=== PATIENT | female | born 1965 | race Caucasian/White ===

== ENCOUNTER → 2016-09-27 | Emergency (ER) | payer OTHER ==
--- NOTE | 2016-09-27 20:34 | ED ORDER SUMMARY ---
..... Patient: MELISSA JOY OrderSheet [facility] VisitID: [id number] [address] [place] [address] 51y, F Registration Date/Time: 09/27/2016 ORDER SHEET Weight: 127.0 kg (stated) Allergies: Aspirin, OxyCODONE HCl GENERAL ORDERS: UA-Culture if indicated Urgent (19:09/27/2016 [facility]) (Ack 19:37 LTapper) Urine Urgent (:09/27/2016 [facility]) (Ack 19:37 LTapper) Urine Drug Screen Urgent (:09/27/2016 [facility]) (Ac 19:37 LTapper) MEDICATION ORDERS: Hydrocodone-APAP PO 5/325 mg (NOW, HIGH ALERT MEDICATION) (20:27 09/27/2016 [facility]) (20:43 EInderbitzen R.N.) Zofran ODT PO 4 mg (NOW) (20:28 09/27/2016 [facility]) (20:43 EInderbitzen R.N.) Flexeril PO 10 mg (NOW) (20:28 09/27/2016 [facility]) (20:43 EInderbitzen R.N.) IV FLUIDS: ORDER SHEET NOTES: [Electronically signed by Vanesa Pisano R.N. (20:44 09/27/2016)] [Electronically signed by Trip Dewitt DO (10:04 09/28/2016)] [Electronically locked/signed by Vanesa Pisano R.N. (20:44 09/27/2016)]
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
--- NOTE | 2016-09-27 20:34 | ED ORDER SUMMARY ---
..... Patient: MELISSA JOY OrderSheet [facility] VisitID: [id number] [address] [place] [address] 51y, F Registration Date/Time: 09/27/2016 ORDER SHEET Weight: 127.0 kg (stated) Allergies: Aspirin, OxyCODONE HCl GENERAL ORDERS: UA-Culture if indicated Urgent (19:09/27/2016 [facility]) (Ack 19:37 LTapper) Urine Urgent (:09/27/2016 [facility]) (Ack 19:37 LTapper) Urine Drug Screen Urgent (:09/27/2016 [facility]) (Ac 19:37 LTapper) MEDICATION ORDERS: Hydrocodone-APAP PO 5/325 mg (NOW, HIGH ALERT MEDICATION) (20:27 09/27/2016 [facility]) (20:43 EInderbitzen R.N.) Zofran ODT PO 4 mg (NOW) (20:28 09/27/2016 [facility]) (20:43 EInderbitzen R.N.) Flexeril PO 10 mg (NOW) (20:28 09/27/2016 [facility]) (20:43 EInderbitzen R.N.) IV FLUIDS: ORDER SHEET NOTES: [Electronically signed by Vanesa Pisano R.N. (20:44 09/27/2016)] [Electronically signed by Trip Dewitt DO (10:04 09/28/2016)] [Electronically locked/signed by Vanesa Pisano R.N. (20:44 09/27/2016)]
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
--- NOTE | 2016-09-28 10:04 | ED MAR SUMMARY ---
..... Medication Administration Record [facility] [address] [place] [address] Patient: MELISSA JOY Visit ID: [id number] 51y, F Weight: 127.0 kg Height/Length: 63 in BMI: 49.6 ALLERGIES: Aspirin, OxyCODONE HCl Given 20:09/27/2016 Vanesa Pisano R.N. Medication Administered: HYDROCODONE-APAP [PO] (HYDROCODONE-ACETAMINOPHEN), Dose: 1 tab 5/325 mg Tablets PO. Medication Ordered: Hydrocodone-APAP PO 5/325 mg (NOW, HIGH ALERT MEDICATION). Given 20:09/27/2016 Vanesa Pisano R.N. Medication Administered: ZOFRAN ODT [PO] (ONDANSETRON), Dose: 4 mg Oral Disintegrating Tablets PO. Medication Ordered: Zofran ODT PO 4 mg (NOW). Given 20:09/27/2016 Vanesa Pisano R.N. Medication Administered: FLEXERIL [PO] (CYCLOBENZAPRINE HCL), Dose: 10 mg Tablets PO. Medication Ordered: Flexeril PO 10 mg (NOW).
--- NOTE | 2016-09-28 10:04 | ED DISCHARGE INSTRUCTIONS ---
Patient: MELISSA JOY General Instructions [facility] VisitID: [id number] [address], [place] [address] 51y, F Registration Date/Time: 09/27/2016 Acute lumbar strain. Essential hypertension. Morbid obesity (BMI >=40) due to excess calories. INSTRUCTIONS Apply ice. Do not work for three days. Warnings: SEDATIVE MEDICATION: You were given sedative medication during your visit. Do not drive or operate dangerous machinery. CONTROLLED SUBSTANCE WARNINGS. GENERAL WARNINGS: Return or contact your physician immediately if your condition worsens or changes unexpectedly, if not improving as expected, or if other problems arise. Your Current Medications: CONTINUE TAKING THE FOLLOWING MEDICATIONS: Albuterol Sulfate HFA Inhalation. Flovent Diskus Inhalation. Meclizine HCl Oral : prn. PROzac Oral. Vistaril Oral : prn, anxiety. Prescription Medications: Hydrocodone/APAP 5mg / 325mg: take 1-2 orally every 8 hours as needed for pain. Dispense ten (10). No refill. Flexeril 10 mg: Take 1 orally every 8 hours as needed for muscle spasm. Dispense twenty (20). No refills. Substitution is permissible. OTC Medications: Acetaminophen (available over the counter): take according to label instructions. Motrin (available over the counter): take according to label instructions. Follow-up: Follow up with your doctor Dennise in about three days. Screening today revealed the patient's blood pressure to be in the hypertensive range. The patient should follow up with a primary care provider for blood pressure management. Follow-up with: [facility], , , [address], , [place], [id number] Follow up tomorrow. ADDITIONAL INFORMATION Back Pain [Acute Or Chronic] Back pain is usually caused by an injury to the muscles or ligaments of the spine. Sometimes the disks that separate each bone in the spine may bulge and cause pain by pressing on a nearby nerve. Back pain may also appear after a sudden twisting/bending force (such as in a car accident), after a simple awkward movement, or lifting something heavy with poor body positioning. In either case, muscle spasm is often present and adds to the pain. Acute back pain usually gets better in one to two weeks. Back pain related to disk disease, arthritis in the spinal joints or spinal stenosis (narrowing of the spinal canal) can become chronic and last for months or years. Unless you had a physical injury (for example, a car accident or fall) X-rays are usually not ordered for the initial evaluation of back pain. If pain continues and does not respond to medical treatment, x-rays and other tests may be performed at a later time. Home Care: You may need to stay in bed the first few days. But, as soon as possible, begin sitting or walking to avoid problems with prolonged bed rest (muscle weakness, worsening back stiffness and pain, blood clots in the legs). When in bed, try to find a position of comfort. A firm mattress is best. Try lying flat on your back with pillows under your knees. You can also try lying on your side with your knees bent up towards your chest and a pillow between your knees. Avoid prolonged sitting. This puts more stress on the lower back than standing or walking. During the first two days after injury, apply an ICE PACK to the painful area for 20 minutes every 2-4 hours. This will reduce swelling and pain. HEAT (hot shower, hot bath or heating pad) works well for muscle spasm. You can start with ice, then switch to heat after two days. Some patients feel best alternating ice and heat treatments. Use the one method that feels the best to you. You may use acetaminophen (Tylenol) or ibuprofen (Motrin, Advil) to control pain, unless another pain medicine was prescribed. [NOTE: If you have chronic liver or kidney disease or ever had a stomach ulcer or GI bleeding, talk with your doctor before using these medicines.] Be aware of safe lifting methods and do not lift anything over 15 pounds until all the pain is gone. Follow Up with your doctor or this facility if your symptoms do not start to improve after one week. Physical therapy may be needed. [NOTE: If X-rays were taken, they will be reviewed by a radiologist. You will be notified of any new findings that may affect your care.] Get Prompt Medical Attention if any of the following occur: Pain becomes worse or spreads to your legs Weakness or numbness in one or both legs Loss of bowel or bladder control Numbness in the groin or genital area High Blood Pressure -- To Be Confirmed [No Tx] Your blood pressure was higher today than normal. Sometimes anxiety or pain can cause a temporary rise in blood pressure that later returns to normal. If your blood pressure is high on one measurement, this does not mean that you have hypertension (a chronic illness). However, you must have your blood pressure measured again within the next few days to find out if its still high. A normal blood pressure is 120/80 or less. The first (top) number is the "systolic" pressure. The second (bottom) number is the "diastolic" pressure. Hypertension exists when either the top number is 140 or higher, OR the bottom number is 90 or higher on repeated measurements. Blood pressure in the range of 120-140 (systolic) or 80-89 (diastolic) is considered "pre-hypertension". This means your are at risk for getting hypertension. You should have regular blood pressure checks to be sure your blood pressure is not rising. Home Care: Measure your blood pressure on 3 different days and write down the results. This can be done at your doctor's office or this facility. Some pharmacies and grocery stores offer automated blood pressure machines for your use. Follow Up: If your blood pressure is "high" (over 120/80) on 2 out of 3 days, you will need to follow up with your doctor for further evaluation and treatment. DO NOT PUT THIS OFF! Untreated high blood pressure increases the risk for heart attack, also known as acute myocardial infarction, or AMI, and stroke. It is a treatable condition. Get Prompt Medical Attention if any of the following occur: Chest pain or shortness of breath Severe headache Throbbing or rushing sound in the ears Nosebleed Sudden severe abdominal pain Extreme drowsiness, confusion or fainting Dizziness or vertigo (dizziness with spinning sensation) Weakness of an arm or leg or one side of the face Difficulty with speech or vision Rib Fracture You have a fracture (break) of one or more ribs. Rib fractures do not require a cast like other bones. They will heal by themselves in about 4-6 weeks. The first 3-4 weeks will be the most painful because deep breathing, coughing or changing position from sitting to lying down, may cause the broken ends to move slightly. Home Care: Rest. You should not be doing any heavy lifting or strenuous exertion until the pain goes away. Because it hurts to breathe when you have a broken rib, there is risk of getting pneumonia from poor airflow through your lungs. To prevent this: Take four very deep breaths at least four times a day (exhale through pursed lips as if you are blowing up a balloon). If an "incentive spirometer" (breathing exercise device) was given to you, use it at least four times a day, or as directed. Apply an ice pack (ice cubes in a plastic bag, wrapped in a towel) over the injured area for 20 minutes every 1-2 hours the first day. Continue with ice packs 3-4 times a day for the next two days, then as needed for the relief of pain and swelling. You may use acetaminophen (Tylenol) or ibuprofen (Motrin, Advil) to control pain, unless another pain medicine was prescribed. [NOTE: If you have chronic liver or kidney disease or ever had a stomach ulcer or GI bleeding, talk with your doctor before using these medicines.] If your pain is not controlled by the treatment given, contact your doctor. Sometimes a stronger pain medicine may be needed. A nerve block (numbing the nerve between the ribs) can be performed in case of severe pain. Follow Up with your doctor during the next week, or as advised. Rarely, a broken rib will cause complications within the first few days that may not be evident during your initial exam (such as, collapsed lung, bleeding around the lung or into the abdomen, or pneumonia). Therefore, watch for the signs below. [NOTE: If x-rays were taken, they will be reviewed by a radiologist. You will be notified of any new findings that may affect your care.] Get Prompt Medical Attention if any of the following occur: Shortness of breath Increasing chest pain with breathing Dizziness, weakness or fainting New or worsening abdominal pain Fever of 100.4F (38C) or higher, or as directed by your healthcare provider Congested cough Hydrocodone Bitartrate, Acetaminophen Oral tablet What is this medicine? ACETAMINOPHEN; HYDROCODONE (a set a NUNO juan fen; lluvia droe KOE done) is a pain reliever. It is used to treat mild to moderate pain. How should I use this medicine? Take this medicine by mouth. Swallow it with a full glass of water. Follow the directions on the prescription label. If the medicine upsets your stomach, take the medicine with food or milk. Do not take more than you are told to take. Talk to your fisher lampara net regarding the use of this medicine in children. This medicine is not approved for use in children. What side effects may I notice from receiving this medicine? Side effects that you should report to your doctor or health human services care specialist as soon as possible: allergic reactions like skin rash, itching or hives, swelling of the face, lips, or tongue breathing problems confusion feeling faint or lightheaded, falls stomach pain yellowing of the eyes or skin Side effects that usually do not require medical attention (report to your doctor or health human services care specialist if they continue or are bothersome): nausea, vomiting stomach upset What may interact with this medicine? alcohol antihistamines isoniazid medicines for depression, anxiety, or psychotic disturbances medicines for sleep muscle relaxants naltrexone narcotic medicines (opiates) for pain phenobarbital ritonavir tramadol What if I miss a dose? If you miss a dose, take it as soon as you can. If it is almost time for your next dose, take only that dose. Do not take double or extra doses. Where should I keep my medicine? Keep out of the reach of children. This medicine can be abused. Keep your medicine in a safe place to protect it from theft. Do not share this medicine with anyone. Selling or giving away this medicine is dangerous and against the law. Store at room temperature between 15 and 30 degrees C (59 and 86 degrees F). Protect from light. Keep container tightly closed. Throw away any unused medicine after the expiration date. Discard unused medicine and used packaging carefully. Pets and children can be harmed if they find used or lost packages. What should I tell my health care provider before I take this medicine? They need to know if you have any of these conditions: brain tumor Crohn's disease, inflammatory bowel disease, or ulcerative colitis drink more than 3 alcohol-containing drinks per day drug abuse or addiction head injury heart or circulation problems kidney disease or problems going to the bathroom liver disease lung disease, asthma, or breathing problems an unusual or allergic reaction to acetaminophen, hydrocodone, other opioid analgesics, other medicines, foods, dyes, or preservatives or trying to get breast-feeding What should I watch for while using this medicine? Tell your doctor or health human services care specialist if your pain does not go away, if it gets worse, or if you have new or a different type of pain. You may develop tolerance to the medicine. Tolerance means that you will need a higher dose of the medicine for pain relief. Tolerance is normal and is expected if you take the medicine for a long time. Do not suddenly stop taking your medicine because you may develop a severe reaction. Your body becomes used to the medicine. This does NOT mean you are addicted. Addiction is a behavior related to getting and using a drug for a non-medical reason. If you have pain, you have a medical reason to take pain medicine. Your doctor will tell you how much medicine to take. If your doctor wants you to stop the medicine, the dose will be slowly lowered over time to avoid any side effects. You may get drowsy or dizzy when you first start taking the medicine or change doses. Do not drive, use machinery, or do anything that may be dangerous until you know how the medicine affects you. Stand or sit up slowly. There are different types of narcotic medicines (opiates) for pain. If you take more than one type at the same time, you may have more side effects. Give your health care provider a list of all medicines you use. Your doctor will tell you how much medicine to take. Do not take more medicine than directed. Call emergency for help if you have problems breathing. The medicine will cause constipation. Try to have a bowel movement at least every 2 to 3 days. If you do not have a bowel movement for 3 days, call your doctor or health human services care specialist. Too much acetaminophen can be very dangerous. Do not take Tylenol (acetaminophen) or medicines that contain acetaminophen with this medicine. Many non-prescription medicines contain acetaminophen. Always read the labels carefully. Cyclobenzaprine Hydrochloride Oral tablet What is this medicine? CYCLOBENZAPRINE ([facility]) is a muscle relaxer. It is used to treat muscle pain, spasms, and stiffness. How should I use this medicine? Take this medicine by mouth with a glass of water. Follow the directions on the prescription label. If this medicine upsets your stomach, take it with food or milk. Take your medicine at regular intervals. Do not take it more often than directed. Talk to your fisher lampara net regarding the use of this medicine in children. Special care may be needed. What side effects may I notice from receiving this medicine? Side effects that you should report to your doctor or health human services care specialist as soon as possible: allergic reactions like skin rash, itching or hives, swelling of the face, lips, or tongue chest pain fast heartbeat hallucinations seizures vomiting Side effects that usually do not require medical attention (report to your doctor or health human services care specialist if they continue or are bothersome): headache What may interact with this medicine? Do not take this medicine with any of the following medications: cisapride droperidol flecainide grepafloxacin halofantrine levomethadyl MAOIs like Carbex, Eldepryl, Marplan, Nardil, and Parnate nilotinib pimozide probucol sertindole This medicine may also interact with the following medications: abarelix alcohol contrast dyes dolasetron guanethidine medicines for cancer medicines for depression, anxiety, or psychotic disturbances medicines to treat an irregular heartbeat medicines used for sleep or numbness during surgery or procedure methadone octreotide ondansetron palonosetron phenothiazines like chlorpromazine, mesoridazine, prochlorperazine, thioridazine some medicines for infection like alfuzosin, chloroquine, clarithromycin, levofloxacin, mefloquine, pentamidine, troleandomycin tramadol vardenafil What if I miss a dose? If you miss a dose, take it as soon as you can. If it is almost time for your next dose, take only that dose. Do not take double or extra doses. Where should I keep my medicine? Keep out of the reach of children. Store at room temperature between 15 and 30 degrees C (59 and 86 degrees F). Keep container tightly closed. Throw away any unused medicine after the expiration date. What should I tell my health care provider before I take this medicine? They need to know if you have any of these conditions: heart disease, irregular heartbeat, or previous heart attack liver disease thyroid problem an unusual or allergic reaction to cyclobenzaprine, tricyclic antidepressants, lactose, other medicines, foods, dyes, or preservatives or trying to get breast-feeding What should I watch for while using this medicine? Check with your doctor or health human services care specialist if your condition does not improve within 1 to 3 weeks. You may get drowsy or dizzy when you first start taking the medicine or change doses. Do not drive, use machinery, or do anything that may be dangerous until you know how the medicine affects you. Stand or sit up slowly. Your mouth may get dry. Drinking water, chewing sugarless gum, or sucking on hard candy may help. Acetaminophen Oral tablet What is this medicine? ACETAMINOPHEN (a set a NUNO juan fen) is a pain reliever. It is used to treat mild pain and fever. How should I use this medicine? Take this medicine by mouth with a glass of water. Follow the directions on the package or prescription label. Take your medicine at regular intervals. Do not take your medicine more often than directed. Talk to your fisher lampara net regarding the use of this medicine in children. While this drug may be prescribed for children as young as 6 years of age for selected conditions, precautions do apply. What side effects may I notice from receiving this medicine? Side effects that you should report to your doctor or health human services care specialist as soon as possible: allergic reactions like skin rash, itching or hives, swelling of the face, lips, or tongue breathing problems fever or sore throat redness, blistering, peeling or loosening of the skin, including inside the mouth trouble passing urine or change in the amount of urine unusual bleeding or bruising unusually weak or tired yellowing of the eyes or skin Side effects that usually do not require medical attention (report to your doctor or health human services care specialist if they continue or are bothersome): headache nausea, stomach upset What may interact with this medicine? alcohol imatinib isoniazid other medicines with acetaminophen What if I miss a dose? If you miss a dose, take it as soon as you can. If it is almost time for your next dose, take only that dose. Do not take double or extra doses. Where should I keep my medicine? Keep out of reach of children. Store at room temperature between 20 and 25 degrees C (68 and 77 degrees F). Protect from moisture and heat. Throw away any unused medicine after the expiration date. What should I tell my health care provider before I take this medicine? They need to know if you have any of these conditions: if you frequently drink alcohol containing drinks liver disease an unusual or allergic reaction to acetaminophen, other medicines, foods, dyes or preservatives or trying to get breast-feeding What should I watch for while using this medicine? Tell your doctor or health human services care specialist if the pain lasts more than 10 days (5 days for children), if it gets worse, or if there is a new or different kind of pain. Also, check with your doctor if a fever lasts for more than 3 days. Do not take other medicines that contain acetaminophen with this medicine. Always read labels carefully. If you have questions, ask your doctor or pharmacist. If you take too much acetaminophen get medical help right away. Too much acetaminophen can be very dangerous and cause liver damage. Even if you do not have symptoms, it is important to get help right away. Ibuprofen Oral tablet What is this medicine? IBUPROFEN (eye BYOO proe fen) is a non-steroidal anti-inflammatory drug (NSAID). It is used for dental pain, fever, headaches or migraines, osteoarthritis, rheumatoid arthritis, or painful monthly periods. It can also relieve minor aches and pains caused by a cold, flu, or sore throat. How should I use this medicine? Take this medicine by mouth with a glass of water. Follow the directions on the prescription label. Take this medicine with food if your stomach gets upset. Try to not lie down for at least 10 minutes after you take the medicine. Take your medicine at regular intervals. Do not take your medicine more often than directed. A special MedGuide will be given to you by the pharmacist with each prescription and refill. Be sure to read this information carefully each time. Talk to your fisher lampara net regarding the use of this medicine in children. Special care may be needed. What side effects may I notice from receiving this medicine? Side effects that you should report to your doctor or health human services care specialist as soon as possible: allergic reactions like skin rash, itching or hives, swelling of the face, lips, or tongue black or bloody stools, blood in the urine or in vomit breathing problems changes in vision chest pain general ill feeling or flu-like symptoms nausea or vomiting redness, blistering, peeling or loosening of the skin, including inside the mouth slurred speech or weakness on one side of the body stomach pain unexplained weight gain or swelling unusually weak or tired yellowing of eyes or skin Side effects that usually do not require medical attention (report to your doctor or health human services care specialist if they continue or are bothersome): constipation or diarrhea dizziness gas or heartburn stomach upset What may interact with this medicine? Do not take this medicine with any of the following medications: cidofovir ketorolac methotrexate pemetrexed This medicine may also interact with the following medications: alcohol aspirin diuretics lithium other drugs for inflammation like prednisone warfarin What if I miss a dose? If you miss a dose, take it as soon as you can. If it is almost time for your next dose, take only that dose. Do not take double or extra doses. Where should I keep my medicine? Keep out of the reach of children. Store at room temperature between 15 and 30 degrees C (59 and 86 degrees F). Keep container tightly closed. Throw away any unused medicine after the expiration date. What should I tell my health care provider before I take this medicine? They need to know if you have any of these conditions: asthma cigarette smoker drink more than 3 alcohol containing drinks a day heart disease or circulation problems such as heart failure or leg edema (fluid retention) high blood pressure kidney disease liver disease stomach bleeding or ulcers an unusual or allergic reaction to ibuprofen, aspirin, other NSAIDS, other medicines, foods, dyes, or preservatives or trying to get breast-feeding What should I watch for while using this medicine? Tell your doctor or healthcare professional if your symptoms do not start to get better or if they get worse. This medicine does not prevent heart attack or stroke. In fact, this medicine may increase the chance of a heart attack or stroke. The chance may increase with longer use of this medicine and in people who have heart disease. If you take aspirin to prevent heart attack or stroke, talk with your doctor or health human services care specialist. Do not take other medicines that contain aspirin, ibuprofen, or naproxen with this medicine. Side effects such as stomach upset, nausea, or ulcers may be more likely to occur. Many medicines available without a prescription should not be taken with this medicine. This medicine can cause ulcers and bleeding in the stomach and intestines at any time during treatment. Ulcers and bleeding can happen without warning symptoms and can cause . To reduce your risk, do not smoke cigarettes or drink alcohol while you are taking this medicine. You may get drowsy or dizzy. Do not drive, use machinery, or do anything that needs mental alertness until you know how this medicine affects you. Do not stand or sit up quickly, especially if you are an older patient. This reduces the risk of dizzy or fainting spells. This medicine can cause you to bleed more easily. Try to avoid damage to your teeth and gums when you brush or floss your teeth. You have been given the following additional information: Back Pain (Acute Or Chronic) Hypertension, To Be Confirmed Fracture, Rib Hydrocodone Bitartrate, Acetaminophen Oral tablet Cyclobenzaprine Hydrochloride Oral tablet Acetaminophen Oral tablet Ibuprofen Oral tablet Do not work for three days. (Electronically signed by Trip Dewitt DO 09/28/2016 10:04)
--- NOTE | 2016-09-28 10:04 | ED MED RECONCILIATION SUMMARY ---
Patient: MELISSA JOY Medication Reconciliation Report [facility] VisitID: [id number] [address] [place] [address] 51y, F Registration Date/Time: 09/27/2016 Weight: 127.0 kg Height/Length: 63 in. BMI: 49.6 ALLERGIES: Aspirin, OxyCODONE HCl The patient's Home Medications are listed below: CONTINUE TAKING THE FOLLOWING MEDICATIONS: Albuterol Sulfate HFA Inhalation Flovent Diskus Inhalation Meclizine HCl Oral PROzac Oral Vistaril Oral, anxiety The source(s) of the original Home Medication information: patient The following Medications were given to the patient in the Emergency Department: Hydrocodone-APAP [PO] PO 1 tab, administered: 09/27/2016 8:40:00 PM Zofran ODT [PO] PO 4 mg, administered: 09/27/2016 8:40:00 PM Flexeril [PO] PO 10 mg, administered: 09/27/2016 8:40:00 PM The following Medications were prescribed to the patient: Acetaminophen (available over the counter): take according to label instructions. -- Trip Dewitt DO Motrin (available over the counter): take according to label instructions. -- Trip Dewitt DO Hydrocodone/APAP 5mg / 325mg: take 1-2 orally every 8 hours as needed for pain. Dispense ten (10). No refill. -- Trip Dewitt DO Flexeril 10 mg: Take 1 orally every 8 hours as needed for muscle spasm. Dispense twenty (20). No refills. Substitution is permissible. -- Trip Dewitt DO
--- NOTE | 2016-09-28 10:04 | ED MAR SUMMARY ---
..... Medication Administration Record [facility] [address] [place] [address] Patient: MELISSA JOY Visit ID: [id number] 51y, F Weight: 127.0 kg Height/Length: 63 in BMI: 49.6 ALLERGIES: Aspirin, OxyCODONE HCl Given 20:09/27/2016 Vanesa Pisano R.N. Medication Administered: HYDROCODONE-APAP [PO] (HYDROCODONE-ACETAMINOPHEN), Dose: 1 tab 5/325 mg Tablets PO. Medication Ordered: Hydrocodone-APAP PO 5/325 mg (NOW, HIGH ALERT MEDICATION). Given 20:09/27/2016 Vanesa Pisano R.N. Medication Administered: ZOFRAN ODT [PO] (ONDANSETRON), Dose: 4 mg Oral Disintegrating Tablets PO. Medication Ordered: Zofran ODT PO 4 mg (NOW). Given 20:09/27/2016 Vanesa Pisano R.N. Medication Administered: FLEXERIL [PO] (CYCLOBENZAPRINE HCL), Dose: 10 mg Tablets PO. Medication Ordered: Flexeril PO 10 mg (NOW).
--- NOTE | 2016-09-28 10:04 | ED MED RECONCILIATION SUMMARY ---
Patient: MELISSA JOY Medication Reconciliation Report [facility] VisitID: [id number] [address] [place] [address] 51y, F Registration Date/Time: 09/27/2016 Weight: 127.0 kg Height/Length: 63 in. BMI: 49.6 ALLERGIES: Aspirin, OxyCODONE HCl The patient's Home Medications are listed below: CONTINUE TAKING THE FOLLOWING MEDICATIONS: Albuterol Sulfate HFA Inhalation Flovent Diskus Inhalation Meclizine HCl Oral PROzac Oral Vistaril Oral, anxiety The source(s) of the original Home Medication information: patient The following Medications were given to the patient in the Emergency Department: Hydrocodone-APAP [PO] PO 1 tab, administered: 09/27/2016 8:40:00 PM Zofran ODT [PO] PO 4 mg, administered: 09/27/2016 8:40:00 PM Flexeril [PO] PO 10 mg, administered: 09/27/2016 8:40:00 PM The following Medications were prescribed to the patient: Acetaminophen (available over the counter): take according to label instructions. -- Trip Dewitt DO Motrin (available over the counter): take according to label instructions. -- Trip Dewitt DO Hydrocodone/APAP 5mg / 325mg: take 1-2 orally every 8 hours as needed for pain. Dispense ten (10). No refill. -- Trip Dewitt DO Flexeril 10 mg: Take 1 orally every 8 hours as needed for muscle spasm. Dispense twenty (20). No refills. Substitution is permissible. -- Trip Dewitt DO
== END ==
LOC: ED SRH 17:32
DX: S39.012A Strain of muscle, fascia and tendon of lower back, initial encounter (principal); X50.9XXA Other and unspecified overexertion or strenuous movements or postures, initial encounter; Y93.9 Activity, unspecified; Y92.009 Unspecified place in unspecified non-institutional (private) residence as the place of occurrence of the external cause; Y99.9 Unspecified external cause status; E66.01 Morbid (severe) obesity due to excess calories; Z68.41 Body mass index [BMI] 40.0-44.9, adult; I10 Essential (primary) hypertension; J45.909 Unspecified asthma, uncomplicated; Z79.899 Other long term (current) drug therapy
CPT/HCPCS: 90004; 92760; 92761; 92762; 92763; 92764; 92765; 92766; 92767; 93070

== ENCOUNTER 2016-11-28 22:35 | Emergency (ER) | payer OTHER ==
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
--- NOTE | 2016-11-28 23:48 | ED NURSING NOTES ---
Clinical Report - Nurses [facility] [address] [place] [address] 11/28/2016 22:34 Patient: MELISSA JOY TRIAGE Triage time 22:39. Acuity: LEVEL 3. Chief Complaint: ("rapid heart rate"). --22:44 Robby Edge R.N. 22:39 11/28/16. BP: 148/85. HR: 85. RR: 20. O2 saturation: 99% on room air. Temp: 98.1 F (oral). Pain level now: 0/10. --22:44 Robby Edge R.N. Weight: 124.2 kg stated. Height/Length: 62 inches Per Patient. BMI: 50.1. --22:45 Robby Edge R.N. Medications Albuterol Sulfate HFA Inhalation. Flovent Diskus Inhalation. Meclizine HCl Oral, as needed. PROzac Oral. Vistaril Oral, as needed, anxiety. --22:40 Robby Edge R.N. Allergies Aspirin. OxyCODONE HCl. --22:40 Robby Edge R.N. History Arrived by private vehicle. Historian: patient. Accompanied by friend. This started today. Onset. ("after eating dinner"). ( patient stats "I knew I was having an anxiety attack" and stats feeling that her heart "was going to jump out of my throat."). PAST MEDICAL HX: Positive. No history of diabetes mellitus. SOCIAL HX: Never smoker. No alcohol use or drug use. --22:44 Robby Edge R.N. PROBLEMS: Obesity. Lumbar Strain. Insect Bite(s). Vertigo. Anxiety Reaction. Depression. Eye Pain. Conjunctivitis. Pharyngitis. Hypertension. Asthma. Bronchitis. --22:41 Robby Edge R.N. ADDITIONAL SURGERIES: Foot. Hysterectomy. Tonsillectomy. Tubal Ligation. --22:41 Robby Edge R.N. Interventions ID band on patient. To treatment room. --22:44 Robby Edge R.N. PHYSICAL ASSESSMENT GENERAL / NEURO / PSYCH: Alert. Oriented X 4. Appears anxious. HEENT: No facial asymmetry noted. Mucous membranes are pink. RESPIRATORY: Respirations not labored. CVS: Capillary refill less than 2 seconds. SKIN: Skin is warm and dry. Normal skin turgor. --22:44 Robby Edge R.N. 00:22 11/29/16. BP: 134/89. HR: 81. RR: 20. O2 saturation: 99% on room air. Additional comments: no change in pain status since last assessment. --00:23 Robby Edge R.N. NURSING PROGRESS NOTES Cardiac rhythm: normal sinus rhythm; (NSR on monitor). groundwater monitoring technician, pulse oximeter and NIBP monitor placed on patient. Patient gowned. Head of bed elevated. Reassurance given. Two patient identifiers checked. Call light placed in reach. Side rails up x 1. Bed placed in lowest position. Brakes of bed on. Patient ready for evaluation- chart flagged. Patient waiting for evaluation. --22:46 Robby Edge R.N. 22:51 11/28/2016 Site #1 started via IV in the right antecubital space with an 20g angiocath; one attempt. Blood drawn: rainbow set. Labeled in the presence of the patient and sent to the lab. Saline lock flushed with saline (IV started by RADHA Alexis). --22:56 Robby Edge R.N. EKG time: (2322 PM). EKG was ordered, performed by a tech and shown to the ED physician. --23:24 Nelly Snyder. DISPOSITION / DISCHARGE 00:17 11/29/2016 Site #1 removed upon discharge. Manual pressure and bandaid applied. --00:22 Robby Edge R.N. Departure time: 00:22. Condition at departure: stable. No learning barriers present. Discharge instructions provided and reviewed with the patient. Reviewed warnings. Treatments reviewed. Reviewed referrals for followup. Patient and director executive communications verbalized understanding. Written instructions provided in Syriac. The patient was discharged home and accompanied by director executive communications. She left the Emergency Department ambulatory and via private vehicle. Filtrose Crusher driving. --00:22 Robby Edge R.N. 00:22 11/29/16. BP: 134/89. HR: 81. RR: 20. O2 saturation: 99% on room air. Additional comments: no change in pain status since last assessment. --00:24 Robby Edge R.N. Locked/Released at 11/29/2016 0:24 by Robby Edge R.N.
--- NOTE | 2016-11-28 23:48 | ED ORDER SUMMARY ---
..... Patient: MELISSA JOY OrderSheet [facility] VisitID: [id number] [address] [place] [address] 51y, F Registration Date/Time: 11/28/2016 ORDER SHEET Weight: 124.2 kg (stated) Allergies: Aspirin, OxyCODONE HCl GENERAL ORDERS: EKG - ER Stat (23:13 11/28/2016 Lele MADDEN) (Ack 23:18 Zain R.NFaith) (23:23 Coreen) MEDICATION ORDERS: IV FLUIDS: ORDER SHEET NOTES: [Electronically signed by Robby Edge R.N. (00:24 11/29/2016)] [Electronically signed by Joshua Ro MD (01:01 11/29/2016)] [Electronically locked/signed by Robby Edge R.N. (00:24 11/29/2016)]
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
--- NOTE | 2016-11-28 23:48 | ED ORDER SUMMARY ---
..... Patient: MELISSA JOY OrderSheet [facility] VisitID: [id number] [address] [place] [address] 51y, F Registration Date/Time: 11/28/2016 ORDER SHEET Weight: 124.2 kg (stated) Allergies: Aspirin, OxyCODONE HCl GENERAL ORDERS: EKG - ER Stat (23:13 11/28/2016 Lele MADDEN) (Ack 23:18 Zain R.NFaith) (23:23 Coreen) MEDICATION ORDERS: IV FLUIDS: ORDER SHEET NOTES: [Electronically signed by Robby Edge R.N. (00:24 11/29/2016)] [Electronically signed by Joshua Ro MD (01:01 11/29/2016)] [Electronically locked/signed by Robby Edge R.N. (00:24 11/29/2016)]
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
--- NOTE | 2016-11-29 01:01 | ED DISCHARGE INSTRUCTIONS ---
Patient: MELISSA JOY General Instructions [facility] VisitID: [id number] [address] [place] [address] 51y, F Registration Date/Time: 11/28/2016 Anxiety reaction. INSTRUCTIONS Avoid stimulants (such as cigarettes, coffee, cold medicines, sinus medicines, street drugs). Warnings: Further evaluation is necessary. GENERAL WARNINGS: Return or contact your physician immediately if your condition worsens or changes unexpectedly, if not improving as expected, or if other problems arise. Understanding of the discharge instructions verbalized by patient. Follow-up with: [facility], , , [address], [place], [id number] Follow up in seven days. Call for the next available appointment. ADDITIONAL INFORMATION Stress Reaction Anxiety is the feeling we all get when we think something bad might happen. It is a normal response to stress and usually causes only a mild reaction. When anxiety becomes more severe, emotions may interfere with daily life. In some cases, you may not even be aware of what it is youre anxious about! During an anxiety reaction, you may feel like you are helpless, nervous, depressed or irritable. Your body may show signs of anxiety in many ways. You may experience dry mouth, shakiness, dizziness, weakness, trouble breathing, chest pressure, headache, nausea, diarrhea, tiredness, inability to sleep or sexual problems. Home Care: 1) Try to locate the sources of stress in your life. They may not be obvious! These may include: -- Daily hassles of life which pile up (traffic jams, missed appointments, car troubles, etc.) -- Major life changes, both good (new baby, job promotion) and bad (loss of job, loss of loved one) -- Overload: feeling that you have too many responsibilities and can't take care of all of them at once -- Feeling helpless, feeling that your problems are beyond what youre able to solve 2) Notice how your body reacts to stress. Learn to listen to your body signals. This will help you take action before the stress becomes severe. 3) When you can, do something about the source of your stress. (Avoid hassles, limit the amount of change that happens in your life at one time and take a break when you feel overloaded). 4) Unfortunately, many stressful situations cannot be avoided. It is necessary to learn HOW TO MANAGE STRESS better. There are many proven methods that will reduce your anxiety. These include simple things like exercise, good nutrition and adequate rest. Also, there are certain techniques that are helpful: relaxation and breathing exercises, visualization, biofeedback and meditation. For more information about this, consult your doctor or go to a local bookstore and review the many books and tapes available on this subject. Follow Up If you feel that your anxiety is not responding to self-help measures, contact your doctor or make an appointment with a counselor. Get Prompt Medical Attention if any of the following occur: -- Your symptoms get worse -- Chest pain or trouble breathing -- Severe headache not relieved by rest and mild pain reliever -- Rapid or irregular heartbeat, fainting Panic Attack A panic attack is an extreme fear reaction that comes on for no apparent reason. Symptoms may include pounding or racing heartbeat, shortness of breath, dizziness, weakness and sweating. There is usually a fear that something terrible will happen or that you may . The attack may last a few minutes up to a few hours. Between attacks things will seem quite normal. This condition has a psychological cause and can be treated with the help of a therapist or psychiatrist. Medication is often used and can be very helpful for this problem. Home Care: Try to identify the sources of stress in your life. It may not be obvious! These may include: Daily hassles of life which pile up (traffic jams, missed appointments, car troubles, etc.). Major life changes, both good (new baby, job promotion) and bad (loss of job, loss of loved one). Overload: feeling that you have too many responsibilities and can't take care of everything at once. Helplessness: feeling like your problems are too much for you to handle. Notice how your body reacts to stress. Learn to listen to your body signals so that you can take action before the stress becomes severe. When possible, AVOID or REDUCE THE CAUSE OF STRESS. Avoid hassles, limit the amount of change that is happening in your life at one time or take a break when you feel overloaded. Unfortunately, many stressful situations cannot be avoided. Therefore, it is necessary to LEARN HOW TO MANAGE STRESS better. There are many proven methods that work and will reduce your anxiety. These include simple things like exercise, good nutrition and adequate rest. Also, there are certain techniques that are helpful: relaxation and breathing exercises, visualization, biofeedback, meditation or simply taking some time-out to clear your mind. For more information about this, consult your doctor or go to a local bookstore and review the many books and tapes available on this subject. Follow Up with your doctor or a therapist as advised. Get Prompt Medical Attention if any of the following occur: Worsening of your symptoms to the point of feeling [id number] A change in the type of pain: if it feels different, becomes more severe, lasts longer, or begins to spread into your shoulder, arm, neck, jaw or back Shortness of breath or increased pain with breathing Increasing feeling of weakness or dizziness Fainting Cough with dark colored sputum (phlegm) or blood Fever of 100.4F (38C) or higher, or as directed by your healthcare provider Swelling, pain or redness in one leg You have been given the following additional information: Anxiety Reaction Panic Attack (Electronically signed by Joshua Ro MD 11/29/2016 1:01)
--- NOTE | 2016-11-29 01:01 | ED MED RECONCILIATION SUMMARY ---
Patient: MELISSA JOY Medication Reconciliation Report [facility] VisitID: [id number] [address] [place] [address] 51y, F Registration Date/Time: 11/28/2016 Weight: 124.2 kg Height/Length: 62 in. BMI: 50.1 ALLERGIES: Aspirin, OxyCODONE HCl The patient's Home Medications are listed below: THE FOLLOWING MEDICATIONS NEED TO BE RECONCILED: Albuterol Sulfate HFA Inhalation Flovent Diskus Inhalation Meclizine HCl Oral PROzac Oral Vistaril Oral, anxiety The source(s) of the original Home Medication information: Not obtained. The following Medications were given to the patient in the Emergency Department: None. The following Medications were prescribed to the patient: None.
--- NOTE | 2016-11-29 01:01 | ED MAR SUMMARY ---
..... Medication Administration Record [facility] [address], [place] [id number] Patient: MELISSA JOY Visit ID: [id number] 51y, F Weight: 124.2 kg Height/Length: 62 in BMI: 50.1 ALLERGIES: Aspirin, OxyCODONE HCl
--- NOTE | 2016-11-29 01:01 | ED MAR SUMMARY ---
..... Medication Administration Record [facility] [address], [place] [id number] Patient: MELISSA JOY Visit ID: [id number] 51y, F Weight: 124.2 kg Height/Length: 62 in BMI: 50.1 ALLERGIES: Aspirin, OxyCODONE HCl
--- NOTE | 2016-11-29 01:01 | ED DISCHARGE INSTRUCTIONS ---
Patient: MELISSA JOY General Instructions [facility] VisitID: [id number] [address] [place] [address] 51y, F Registration Date/Time: 11/28/2016 Anxiety reaction. INSTRUCTIONS Avoid stimulants (such as cigarettes, coffee, cold medicines, sinus medicines, street drugs). Warnings: Further evaluation is necessary. GENERAL WARNINGS: Return or contact your physician immediately if your condition worsens or changes unexpectedly, if not improving as expected, or if other problems arise. Understanding of the discharge instructions verbalized by patient. Follow-up with: [facility], , , [address], [place], [id number] Follow up in seven days. Call for the next available appointment. ADDITIONAL INFORMATION Stress Reaction Anxiety is the feeling we all get when we think something bad might happen. It is a normal response to stress and usually causes only a mild reaction. When anxiety becomes more severe, emotions may interfere with daily life. In some cases, you may not even be aware of what it is youre anxious about! During an anxiety reaction, you may feel like you are helpless, nervous, depressed or irritable. Your body may show signs of anxiety in many ways. You may experience dry mouth, shakiness, dizziness, weakness, trouble breathing, chest pressure, headache, nausea, diarrhea, tiredness, inability to sleep or sexual problems. Home Care: 1) Try to locate the sources of stress in your life. They may not be obvious! These may include: -- Daily hassles of life which pile up (traffic jams, missed appointments, car troubles, etc.) -- Major life changes, both good (new baby, job promotion) and bad (loss of job, loss of loved one) -- Overload: feeling that you have too many responsibilities and can't take care of all of them at once -- Feeling helpless, feeling that your problems are beyond what youre able to solve 2) Notice how your body reacts to stress. Learn to listen to your body signals. This will help you take action before the stress becomes severe. 3) When you can, do something about the source of your stress. (Avoid hassles, limit the amount of change that happens in your life at one time and take a break when you feel overloaded). 4) Unfortunately, many stressful situations cannot be avoided. It is necessary to learn HOW TO MANAGE STRESS better. There are many proven methods that will reduce your anxiety. These include simple things like exercise, good nutrition and adequate rest. Also, there are certain techniques that are helpful: relaxation and breathing exercises, visualization, biofeedback and meditation. For more information about this, consult your doctor or go to a local bookstore and review the many books and tapes available on this subject. Follow Up If you feel that your anxiety is not responding to self-help measures, contact your doctor or make an appointment with a counselor. Get Prompt Medical Attention if any of the following occur: -- Your symptoms get worse -- Chest pain or trouble breathing -- Severe headache not relieved by rest and mild pain reliever -- Rapid or irregular heartbeat, fainting Panic Attack A panic attack is an extreme fear reaction that comes on for no apparent reason. Symptoms may include pounding or racing heartbeat, shortness of breath, dizziness, weakness and sweating. There is usually a fear that something terrible will happen or that you may . The attack may last a few minutes up to a few hours. Between attacks things will seem quite normal. This condition has a psychological cause and can be treated with the help of a therapist or psychiatrist. Medication is often used and can be very helpful for this problem. Home Care: Try to identify the sources of stress in your life. It may not be obvious! These may include: Daily hassles of life which pile up (traffic jams, missed appointments, car troubles, etc.). Major life changes, both good (new baby, job promotion) and bad (loss of job, loss of loved one). Overload: feeling that you have too many responsibilities and can't take care of everything at once. Helplessness: feeling like your problems are too much for you to handle. Notice how your body reacts to stress. Learn to listen to your body signals so that you can take action before the stress becomes severe. When possible, AVOID or REDUCE THE CAUSE OF STRESS. Avoid hassles, limit the amount of change that is happening in your life at one time or take a break when you feel overloaded. Unfortunately, many stressful situations cannot be avoided. Therefore, it is necessary to LEARN HOW TO MANAGE STRESS better. There are many proven methods that work and will reduce your anxiety. These include simple things like exercise, good nutrition and adequate rest. Also, there are certain techniques that are helpful: relaxation and breathing exercises, visualization, biofeedback, meditation or simply taking some time-out to clear your mind. For more information about this, consult your doctor or go to a local bookstore and review the many books and tapes available on this subject. Follow Up with your doctor or a therapist as advised. Get Prompt Medical Attention if any of the following occur: Worsening of your symptoms to the point of feeling [id number] A change in the type of pain: if it feels different, becomes more severe, lasts longer, or begins to spread into your shoulder, arm, neck, jaw or back Shortness of breath or increased pain with breathing Increasing feeling of weakness or dizziness Fainting Cough with dark colored sputum (phlegm) or blood Fever of 100.4F (38C) or higher, or as directed by your healthcare provider Swelling, pain or redness in one leg You have been given the following additional information: Anxiety Reaction Panic Attack (Electronically signed by Joshua Ro MD 11/29/2016 1:01)
--- NOTE | 2016-11-29 01:01 | ED MED RECONCILIATION SUMMARY ---
Patient: MELISSA JOY Medication Reconciliation Report [facility] VisitID: [id number] [address] [place] [address] 51y, [place] Registration Date/Time: 11/28/2016 Weight: 124.2 kg Height/Length: 62 in. BMI: 50.1 ALLERGIES: Aspirin, OxyCODONE HCl The patient's Home Medications are listed below: THE FOLLOWING MEDICATIONS NEED TO BE RECONCILED: Albuterol Sulfate HFA Inhalation Flovent Diskus Inhalation Meclizine HCl Oral PROzac Oral Vistaril Oral, anxiety The source(s) of the original Home Medication information: Not obtained. The following Medications were given to the patient in the Emergency Department: None. The following Medications were prescribed to the patient: None.
== END 2016-11-29 00:22 | disposition home or self-care (01) ==
LOC: ED SRH 22:35
DX: F41.1 Generalized anxiety disorder (principal); I10 Essential (primary) hypertension; Z79.899 Other long term (current) drug therapy; Z88.6 Allergy status to analgesic agent; Z88.5 Allergy status to narcotic agent